=== PATIENT | male | born 1985 | race Caucasian/White ===

== ENCOUNTER 2018-10-10 20:50 | Emergency (ER) | payer OTHER ==
[~2018-10-10] VITALS: Ht 177.8 cm; Wt 63.5 kg
[~2018-10-10 20:50] MED LIST: BACTRIM DS TAB1 EACH PO; BENADRYL25 MG PO; FEOSOL325 M1 PO; HYDROCODON-ACE1 EAC7 PO; KEFLEX500 MG PO; NOHOMEMEDICATIONS; NORCO 5-325 TA1 EACH PO; PEPCID20 MG PO; PREDNISONE50 MG PO; ULTRAM 50MG TAB50 MG PO
[2018-10-10 21:47] LABS: HEMATOCRIT 42.4 % (42.0-52.0); HEMOGLOBIN 14.2 gm/dL (14.0-18.0); MCH 28.5 pg (26.0-34.0); MCHC 33.5 g/dL (28.0-37.0); MCV 85.1 fL (80.0-100.0); MPV 7.5 fl. (7.2-11.1); NUCLEATED RBCS 0 /100WBC; PLATELET COUNT* 201 thou/uL (150-400); RBC 4.99 mil/uL (4.50-6.00); RDW-CV 13.1 % (10.5-14.5); WBC 15.1 thou/uL (4.0-11.0)
[2018-10-10 21:48] LABS: CALCIUM 8.8 mg/dL (8.5-10.1); CREATININE 0.9 mg/dL (0.6-1.3); POTASSIUM 4.2 mmol/L (3.5-5.1)
[2018-10-10 21:53] LABS: TOTAL BILIRUBIN 0.5 mg/dL (<0.1-1.0); TOTAL PROTEIN 7.4 g/dL (6.4-8.2)
[2018-10-10] MEDS ORDERED: NORCO 5-325 TA1 EAC1 PO (22:12)
[2018-10-10] MEDS ORDERED: PENICILLIN V P500 MG PO (22:12)
[2018-10-10] MEDS ORDERED: IBUPROFEN 800800 M1 PO (22:12)
[2018-10-10] MEDS ORDERED: PERIDEX 0.12%473 M1 SWISH&SPIT (22:19)
[2018-10-10 22:33] LABS: ABSOLUTE BASOPHILS 0.2 thou/uL (0.0-0.2); ABSOLUTE EOSINOPHILS 0.2 thou/uL (0.0-0.7); ABSOLUTE LYMPHOCYTES 0.6 thou/uL (0.8-5.3); ABSOLUTE MONOCYTES 0.8 thou/uL (0.0-1.2); ABSOLUTE NEUTROPHILS 13.4 thou/uL (1.6-8.1)
[2018-10-10 22:34] LABS: PLATELET ESTIMATE ADEQUATE
[2018-10-10 22:45] VITALS: BP 121/85
== END 2018-10-10 22:45 | disposition home or self-care (01) ==
LOC: M.ERS 20:50
PROVIDERS: Nurse Practitioner Family
DX: K04.7 Periapical abscess without sinus (principal); M79.18 Myalgia, other site; Z87.891 Personal history of nicotine dependence; Z88.1 Allergy status to other antibiotic agents